=== PATIENT | female | born 1995 | race Caucasian/White ===

== ENCOUNTER 2020-07-03 11:32 | Inpatient (IN) | payer MEDICAID ==
[~2020-07-03] VITALS: Ht 147.3 cm; Wt 36.9 kg
[2020-07-03 12:41] LABS: BASOPHILS % (AUTO) 0.5 % (0.0-2.0); EOSINOPHILS % (AUTO) 0.6 % (1.0-6.0); HEMATOCRIT 45.2 % (36-46); HEMOGLOBIN 15.2 g/dL (12.0-16.0); LYMPHOCYTES # (AUTO) 1.8 K/uL (1.0-4.8); LYMPHOCYTES % (AUTO) 13.3 % (22.0-44.0); MEAN CORPUSCULAR HGB CONC 33.6 G/dL (31.0-37.0); MEAN CORPUSCULAR VOLUME 89 fL (80-100); MONOCYTES # (AUTO) 0.8 K/uL (0.1-1.0); MONOCYTES % (AUTO) 5.9 % (2.0-9.0); NEUTROPHILS # (AUTO) 10.9 K/uL (1.8-7.7); NEUTROPHILS % (AUTO) 79.7 % (40.0-70.0); PLATELET COUNT (AUTO) 308 K/uL (150-450); RED BLOOD CELL COUNT(AUTO) 5.06 MIL/uL (4.00-5.20); RED CELL DISTRIBUTION WIDTH 13.3 % (11.5-14.5)
[2020-07-03 12:56] LABS: ANION GAP 12 mmol/L (8-16); CALCIUM, TOTAL 9.8 mg/dL (8.8-10.5); CARBON DIOXIDE 25 mmol/L (22-29); CHLORIDE 99 mmol/L (98-107); CREATININE 0.58 mg/dL (0.60-1.30); GLOMERULAR FILTR. RATE CALC > 60 mL/min (>60); GLUCOSE,RANDOM 102 mg/dL (70-110); POTASSIUM 3.5 mmol/L (3.5-5.1); SODIUM SERUM 136 mmol/L (136-145); UREA NITROGEN, BLOOD 4 mg/dL (7-18)
[2020-07-03 13:02] LABS: ALANINE AMINOTRANSFERASE 20 U/L (12-78); ALBUMIN 4.6 g/dL (3.4-5.0); ALKALINE PHOSPHATASE 68 U/L (46-116); ASPARTATE AMINOTRANSFERASE 20 U/L (15-37); BILIRUBIN,TOTAL 0.7 mg/dL (0.1-1.0); TOTAL PROTEIN, SERUM 8.6 g/dL (6.4-8.2)
[2020-07-03 13:07] LABS: AMPHET/METH SCREEN,URINE POSITIVE (NEGATIVE); BARBITURATE SCREEN, URINE NEGATIVE (NEGATIVE); BENZODIAZEPINES SCREEN,URINE NEGATIVE (NEGATIVE); CANNABINOID SCREEN,URINE NEGATIVE (NEGATIVE); COCAINE SCREEN,URINE NEGATIVE (NEGATIVE); METHADONE SCREEN, URINE NEGATIVE (NEGATIVE); OPIATE SCREEN,URINE NEGATIVE (NEGATIVE)
[2020-07-03 13:10] LABS: PHENCYCLIDINE SCREEN,URINE NEGATIVE (NEGATIVE)
[2020-07-03 15:54] LABS: COVID AG,FIA SOURCE NASOPHARYNGEAL
[2020-07-03] MEDS: LORazepam 2 MG TABLET PO PRN (19:03)
[2020-07-03] MEDS: OLANZapine 5 MG TABLET PO SCH (19:03)
[2020-07-04] MEDS ORDERED: DOCUSATE SODIUM 100 MG CAPSULE PO PRN (06:45)
[2020-07-04] MEDS ORDERED: PETROLATUM,WHITE 28 GM JELLY TP PRN (06:45)
[2020-07-04] MEDS ORDERED: GuaiFENesin/D-METHORPHAN [SUGAR-FREE] 200-20MG/10 ML SYRUP UDCUP PO PRN (06:45)
[2020-07-04] MEDS ORDERED: ONDANSETRON HCL 4 MG TABLET PO PRN (06:45)
[2020-07-04] MEDS ORDERED: LOPERAMIDE HCL 2 MG CAPSULE PO PRN (06:45)
[2020-07-04] MEDS ORDERED: CloNIDine HCL 0.1 MG TABLET PO PRN (06:45)
[2020-07-04] MEDS ORDERED: IBUPROFEN 400 MG TABLET PO PRN (06:45)
[2020-07-04] MEDS ORDERED: ALBUTEROL SULFATE HFA 90 MCG/PUFF 8 GM INHALER IH PRN (06:45)
[2020-07-04] MEDS ORDERED: MAGNESIUM HYDROXIDE SUSPENSION 30 ML UDCUP PO PRN (06:45)
[2020-07-04] MEDS ORDERED: ACETAMINOPHEN 325 MG TABLET PO PRN (06:45)
[2020-07-04] MEDS ORDERED: MAG HYDROX/AL HYDROX/SIMETH ES 30 ML SUSPENSION UDCUP PO PRN (06:45)
[2020-07-04 07:46] LABS: APPEARANCE,URINE CLOUDY (CLEAR); BILIRUBIN,URINE NEGATIVE (NEGATIVE); GLUCOSE, URINE (UA) NEGATIVE (NEGATIVE); KETONES,URINE NEGATIVE (NEGATIVE); LEUKOCYTE ESTERASE ,URINE TRACE (NEGATIVE); NITRATE,URINE NEGATIVE (NEGATIVE); PH,URINE 6.5 (5.0-8.0); PROTEIN,URINE NEGATIVE (NEGATIVE); UROBILINOGEN,URINE 0.2 mg/dL (<=1.0)
[2020-07-04 07:56] LABS: BACTERIA,URINE Many /HPF (None Seen); OCCULT BLOOD,URINE SMALL (NEGATIVE); SQUAMOUS EPITHELIAL CELL,UR Many /LPF (None Seen); WBC,URINE 0-2 /HPF (0-5)
[2020-07-04 08:00] LABS: CHOL/HDL RATIO 3.6 (3.9-5.7)
[2020-07-04 08:06] VITALS: BP 124/74
[2020-07-04] MEDS: OLANZapine 5 MG TABLET PO SCH ×2 (09:00→17:00)
[2020-07-04] MEDS: CEPHALEXIN MONOHYDRATE 250 MG CAPSULE PO SCH (16:00)
[2020-07-04] MEDS ORDERED: HALOPERIDOL LACTATE 5 MG/ML VIAL ONE (16:54)
[2020-07-04] MEDS ORDERED: HALOPERIDOL LACTATE 5 MG/ML VIAL IM ONE (17:00)
[2020-07-04] MEDS ORDERED: DiphenhydrAMINE HCL 50 MG/ML VIAL IM ONE (17:00)
[2020-07-04] MEDS ORDERED: LORazepam 2 MG/ML VIAL IM ONE (17:00)
[2020-07-04 22:26] VITALS: BP 102/60
[2020-07-05 00:29] VITALS: BP 100/65
[2020-07-05] MEDS: MULTIVITAMINS WITH MINERALS, THERAPEUTIC TABLET PO SCH ×2 (07:35→08:49)
[2020-07-05] MEDS: OLANZapine 5 MG TABLET PO SCH ×3 (07:35→16:01)
[2020-07-05] MEDS: THIAMINE 100 MG TABLET PO SCH ×2 (07:35→08:49)
[2020-07-05] MEDS: CEPHALEXIN MONOHYDRATE 250 MG CAPSULE PO SCH ×5 (07:35→23:45)
[2020-07-05] MEDS: HALOPERIDOL 5 MG TABLET PO PRN (07:36)
[2020-07-05] MEDS: LORazepam 2 MG TABLET PO PRN (07:36)
[2020-07-05 12:02] VITALS: BP 107/62
[2020-07-05 16:45] VITALS: BP 106/63
[2020-07-05] MEDS: ZOLPIDEM TARTRATE 10 MG TABLET PO PRN (23:03)
[2020-07-06] MEDS: LORazepam 2 MG TABLET PO PRN ×3 (01:45→17:23)
[2020-07-06] MEDS: HALOPERIDOL 5 MG TABLET PO PRN ×2 (01:45→12:38)
[2020-07-06 01:56] VITALS: BP 121/78
[2020-07-06 08:09] VITALS: BP 105/66
[2020-07-06] MEDS: CEPHALEXIN MONOHYDRATE 250 MG CAPSULE PO SCH ×3 (08:14→23:31)
[2020-07-06] MEDS: OLANZapine 5 MG TABLET PO SCH ×2 (08:15→17:02)
[2020-07-06] MEDS: MULTIVITAMINS WITH MINERALS, THERAPEUTIC TABLET PO SCH (08:16)
[2020-07-06] MEDS: THIAMINE 100 MG TABLET PO SCH (08:16)
[2020-07-06 16:50] VITALS: BP 110/75
[2020-07-06] MEDS: ZOLPIDEM TARTRATE 10 MG TABLET PO PRN (20:26)
[2020-07-07 01:45] VITALS: BP 110/72
[2020-07-07] MEDS: LORazepam 2 MG TABLET PO PRN ×3 (02:53→16:28)
[2020-07-07 08:06] VITALS: BP 116/72
[2020-07-07] MEDS: CEPHALEXIN MONOHYDRATE 250 MG CAPSULE PO SCH ×2 (08:34→16:28)
[2020-07-07] MEDS: THIAMINE 100 MG TABLET PO SCH (08:35)
[2020-07-07] MEDS: MULTIVITAMINS WITH MINERALS, THERAPEUTIC TABLET PO SCH (08:35)
[2020-07-07] MEDS: OLANZapine 5 MG TABLET PO SCH ×2 (08:35→16:28)
[2020-07-07 16:24] VITALS: BP 110/70
[2020-07-07] MEDS: NICOTINE 14 MG/24 HOUR PATCH TD PRN (17:36)
[2020-07-08 00:10] VITALS: BP 114/74
[2020-07-08] MEDS: CEPHALEXIN MONOHYDRATE 250 MG CAPSULE PO SCH ×3 (00:10→16:14)
[2020-07-08 08:07] VITALS: BP 127/67
[2020-07-08] MEDS: LORazepam 2 MG TABLET PO PRN ×2 (08:23→16:16)
[2020-07-08] MEDS: OLANZapine 5 MG TABLET PO SCH ×2 (08:23→16:14)
[2020-07-08] MEDS: MULTIVITAMINS WITH MINERALS, THERAPEUTIC TABLET PO SCH (08:24)
[2020-07-08] MEDS: THIAMINE 100 MG TABLET PO SCH (08:24)
[2020-07-08] MEDS: NICOTINE 14 MG/24 HOUR PATCH TD PRN (12:34)
[2020-07-08 16:06] VITALS: BP 100/63
[2020-07-08] MEDS: ZOLPIDEM TARTRATE 10 MG TABLET PO PRN (20:38)
[2020-07-09] MEDS: CEPHALEXIN MONOHYDRATE 250 MG CAPSULE PO SCH ×2 (00:16→08:07)
[2020-07-09 00:43] VITALS: BP 102/68
[2020-07-09 08:04] VITALS: BP 122/69
[2020-07-09] MEDS: OLANZapine 5 MG TABLET PO SCH (08:07)
[2020-07-09] MEDS: LORazepam 2 MG TABLET PO PRN (08:07)
[2020-07-09] MEDS: THIAMINE 100 MG TABLET PO SCH (08:07)
[2020-07-09] MEDS: MULTIVITAMINS WITH MINERALS, THERAPEUTIC TABLET PO SCH (08:08)
[2020-07-09] MEDS: HALOPERIDOL 5 MG TABLET PO PRN (09:21)
[2020-07-09] MEDS ORDERED: CEPH-582 PO (11:44)
[2020-07-09] MEDS ORDERED: OLAN5TAB2 PO (11:44)
[2020-07-09] MEDS: NICOTINE 14 MG/24 HOUR PATCH TD PRN (12:53)
== END 2020-07-09 13:30 | disposition home or self-care (01) | DRG 750 ==
LOC: EMS 12:13 → B3A 15:44
PROVIDERS: ADMIT Psychiatry & Neurology Psychiatry; ATTEND Psychiatry & Neurology Psychiatry
DX: F20.0 Paranoid schizophrenia (principal); E78.5 Hyperlipidemia, unspecified; N39.0 Urinary tract infection, site not specified; Z72.89 Other problems related to lifestyle; Z20.828 Contact with and (suspected) exposure to other viral communicable diseases; F19.10 Other psychoactive substance abuse, uncomplicated; R00.0 Tachycardia, unspecified; D72.829 Elevated white blood cell count, unspecified
CPT/HCPCS: 87086; 87426; G0480; J1200; J1630; J2060